=== PATIENT | male | born 1960 ===

== ENCOUNTER 2023-05-19 06:07 | Day surgery (SDC) | payer OTHER ==
[~2023-05-19 06:07] MED LIST: COZAAR100 MG PO; SYNTHROID112 MCG PO
== END 2023-05-19 16:50 | disposition home or self-care (01) ==
LOC: CIR.AMB 06:07
PROVIDERS: ATTEND Surgery
DX: K40.20 Bilateral inguinal hernia, without obstruction or gangrene, not specified as recurrent (principal); Z20.822 Contact with and (suspected) exposure to COVID-19; I10 Essential (primary) hypertension; F17.210 Nicotine dependence, cigarettes, uncomplicated